=== PATIENT | male | born 1965 | race Caucasian/White ===

== ENCOUNTER 2016-09-03 20:55 | Emergency (ER) | payer BC ==
[~2016-09-03] VITALS: Ht 177.8 cm; Wt 86.3 kg
[2016-09-03 21:05] VITALS: Ht 177.8 cm; Wt 86.3 kg
[2016-09-03] MEDS ORDERED: HYDR-906 PO (21:30)
[2016-09-03] MEDS ORDERED: IBUP-1542 PO (21:30)
[2016-09-03] MEDS ORDERED: CYCL-319 PO (21:30)
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
== END 2016-09-03 22:02 | disposition home or self-care (01) ==
LOC: FTE 20:55
DX: S39.012A Strain of muscle, fascia and tendon of lower back, initial encounter (principal); S16.1XXA Strain of muscle, fascia and tendon at neck level, initial encounter; V49.40XA Driver injured in collision with unspecified motor vehicles in traffic accident, initial encounter
CPT/HCPCS: 99284